=== PATIENT | male | born 1995 | race Caucasian/White ===

== ENCOUNTER 2022-01-07 19:22 | Emergency (ER) | payer SELFPAY ==
[2022-01-07 20:16] LABS: CHLORIDE,CL 105 mEq/L (98-106); SODIUM,NA 142 mEq/L (136-145)
[2022-01-07 20:18] LABS: ESTIMATED GFR 122 mL/min (>=60)
== END 2022-01-07 20:50 | disposition home or self-care (01) ==
LOC: CC.ED 19:22
DX: K52.9 Noninfective gastroenteritis and colitis, unspecified (principal); E86.0 Dehydration; Z20.822 Contact with and (suspected) exposure to COVID-19
CPT/HCPCS: 36415; 80053; 81003; 83690; 85025; 86140; 99283; 99284; U0002